=== PATIENT | male | born 1970 | race Caucasian/White ===

== ENCOUNTER 2021-12-05 13:11 | Emergency (ER) | payer BC ==
[~2021-12-05] VITALS: Ht 167.6 cm; Wt 89.8 kg
--- NOTE | 2021-12-05 14:10 | NUR ---
BIBS C/O DIARRHEA [id number]. AMBULATORY, PLACED ON BED, [id number]. SEEN AND EXAMINED BY DR CROWLEY
[2021-12-05] MEDS ORDERED: SULF1TAB48 PO (14:25)
[2021-12-05] MEDS ORDERED: LOPE-195 PO (14:25)
[2021-12-05] MEDS ORDERED: ONDA4TAB11 PO (14:25)
--- NOTE | 2021-12-05 14:48 | NUR ---
Patient discharged to home in stable condition. Written and verbal after care instructions given. Patient verbalizes understanding of instruction.
[2021-12-05 14:49] VITALS: BP 120/81
== END 2021-12-05 14:49 | disposition home or self-care (01) ==
LOC: ER 13:35
DX: R19.7 Diarrhea, unspecified (principal)